=== PATIENT | male | born 1990 | race Caucasian/White ===

== ENCOUNTER 2022-11-07 10:54 | Emergency (ER) | payer OTHER ==
[2022-11-07] MEDS ORDERED: Ibuprofen 200 MG TAB ONE (11:37)
== END 2022-11-07 11:45 ==
LOC: NAV ERS 10:54
DX: S56.417A Strain of extensor muscle, fascia and tendon of right little finger at forearm level, initial encounter (principal); F17.210 Nicotine dependence, cigarettes, uncomplicated; X58.XXXA Exposure to other specified factors, initial encounter